=== PATIENT | male | born 1950 | race Caucasian/White ===

== ENCOUNTER 2021-06-29 16:55 | Inpatient (IN) | payer MEDICARE ==
[~2021-06-29] VITALS: Ht 188 cm; Wt 88.9 kg
[2021-06-29] MEDS ORDERED: MELATONIN 3 MG TABLET PO PRN (20:45)
[2021-06-29 20:58] VITALS: BP 139/73
[2021-06-29] MEDS ORDERED: SENNA 187 MG TABLET PO SCH (21:00)
[2021-06-29] MEDS: ATORVASTATIN CALCIUM 40 MG TABLET PO SCH (22:33)
[2021-06-29] MEDS: ETHYL ALCOHOL 62% ANTISEPTIC NASAL INHALANT 0.6 ML AMPUL NASAL SCH (22:33)
[2021-06-29] MEDS: RIVAROXABAN 15 MG TABLET PO SCH (22:33)
[2021-06-29] MEDS: DOCUSATE SODIUM 100 MG CAPSULE PO SCH (22:33)
[2021-06-30] VITALS: BP 115/54
[2021-06-30 07:02] LABS: BASOPHILS % (AUTO) 0.6 % (0.0-2.0); EOSINOPHILS % (AUTO) 1.2 % (1.0-6.0); HEMATOCRIT 26.2 % (41-53); HEMOGLOBIN 9.5 g/dL (13.5-17.5); LYMPHOCYTES # (AUTO) 1.3 K/uL (1.0-4.8); LYMPHOCYTES % (AUTO) 13.1 % (22.0-44.0); MEAN CORPUSCULAR HEMOGLOBIN 31.2 pg (26.0-34.0); MEAN CORPUSCULAR HGB CONC 36.4 G/dL (31.0-37.0); MEAN CORPUSCULAR VOLUME 86 fL (80-100); MONOCYTES # (AUTO) 1.1 K/uL (0.1-1.0); MONOCYTES % (AUTO) 11.1 % (2.0-9.0); NEUTROPHILS # (AUTO) 7.5 K/uL (1.8-7.7); PLATELET COUNT (AUTO) 214 K/uL (150-450); RED BLOOD CELL COUNT(AUTO) 3.06 MIL/uL (4.50-5.90); RED CELL DISTRIBUTION WIDTH 14.6 % (11.5-14.5)
[2021-06-30 07:20] LABS: ALANINE AMINOTRANSFERASE 27 U/L (12-78); ALBUMIN 2.6 g/dL (3.4-5.0); ALKALINE PHOSPHATASE 68 U/L (46-116); ANION GAP 3 mmol/L (8-16); ASPARTATE AMINOTRANSFERASE 23 U/L (15-37); BILIRUBIN,TOTAL 0.8 mg/dL (0.1-1.0); CALCIUM, TOTAL 9.3 mg/dL (8.8-10.5); CARBON DIOXIDE 31 mmol/L (22-29); CHLORIDE 104 mmol/L (98-107); CREATININE 1.14 mg/dL (0.60-1.30); GLOMERULAR FILTR. RATE CALC > 60 mL/min (>60); GLUCOSE,RANDOM 113 mg/dL (70-110); POTASSIUM 4.3 mmol/L (3.5-5.1); SODIUM SERUM 138 mmol/L (136-145); TOTAL PROTEIN, SERUM 6.3 g/dL (6.4-8.2); UREA NITROGEN, BLOOD 26 mg/dL (7-18)
[2021-06-30] MEDS: DOCUSATE SODIUM 100 MG CAPSULE PO SCH (07:55)
[2021-06-30] MEDS: RIVAROXABAN 15 MG TABLET PO SCH ×2 (07:56→16:28)
[2021-06-30] MEDS: ASPIRIN 81 MG CHEWABLE TABLET PO SCH (07:57)
[2021-06-30] MEDS: ZINC SULFATE 220 MG CAPSULE PO SCH (07:57)
[2021-06-30] MEDS: PANTOPRAZOLE SODIUM 40 MG DR TABLET PO SCH (07:58)
[2021-06-30] MEDS: MULTIVITAMINS WITH MINERALS, THERAPEUTIC TABLET PO SCH (07:59)
[2021-06-30] MEDS: ASCORBIC ACID 500 MG TABLET PO SCH (07:59)
[2021-06-30] MEDS: ETHYL ALCOHOL 62% ANTISEPTIC NASAL INHALANT 0.6 ML AMPUL NASAL SCH ×2 (08:00→20:43)
[2021-06-30 09:00] VITALS: BP 125/60
[2021-06-30] MEDS: ACETAMINOPHEN 325 MG TABLET PO PRN ×2 (09:58→18:22)
[2021-06-30 16:30] VITALS: BP 130/64
[2021-06-30] MEDS: -LIDODERM PATCH NOTE- MISC SCH (20:42)
[2021-06-30] MEDS: ATORVASTATIN CALCIUM 40 MG TABLET PO SCH (20:43)
[2021-06-30] MEDS: SENNA 187 MG TABLET PO SCH (20:43)
[2021-06-30] MEDS: DOCUSATE SODIUM 250 MG CAPSULE PO SCH (20:43)
[2021-07-01 00:43] VITALS: BP 121/61
[2021-07-01] MEDS: ZINC SULFATE 220 MG CAPSULE PO SCH (08:09)
[2021-07-01] MEDS: RIVAROXABAN 15 MG TABLET PO SCH ×2 (08:09→17:38)
[2021-07-01] MEDS: PANTOPRAZOLE SODIUM 40 MG DR TABLET PO SCH (08:09)
[2021-07-01] MEDS: ASCORBIC ACID 500 MG TABLET PO SCH (08:09)
[2021-07-01] MEDS: MULTIVITAMINS WITH MINERALS, THERAPEUTIC TABLET PO SCH (08:09)
[2021-07-01] MEDS: ASPIRIN 81 MG CHEWABLE TABLET PO SCH (08:09)
[2021-07-01] MEDS: DOCUSATE SODIUM 250 MG CAPSULE PO SCH ×2 (08:09→20:06)
[2021-07-01] MEDS: ETHYL ALCOHOL 62% ANTISEPTIC NASAL INHALANT 0.6 ML AMPUL NASAL SCH ×2 (08:10→20:07)
[2021-07-01] MEDS: LIDOCAINE 5% TRANSDERMAL PATCH TD SCH (08:16)
[2021-07-01 08:30] VITALS: BP 128/63
[2021-07-01] MEDS: ACETAMINOPHEN 325 MG TABLET PO PRN (16:35)
[2021-07-01 16:40] VITALS: BP 127/60
[2021-07-01] MEDS: ATORVASTATIN CALCIUM 40 MG TABLET PO SCH (20:06)
[2021-07-01] MEDS: SENNA 187 MG TABLET PO SCH (20:06)
[2021-07-01] MEDS: -LIDODERM PATCH NOTE- MISC SCH (20:07)
[2021-07-02 00:59] VITALS: BP 120/61
[2021-07-02] MEDS: ASPIRIN 81 MG CHEWABLE TABLET PO SCH (08:28)
[2021-07-02] MEDS: MULTIVITAMINS WITH MINERALS, THERAPEUTIC TABLET PO SCH (08:28)
[2021-07-02] MEDS: ASCORBIC ACID 500 MG TABLET PO SCH (08:28)
[2021-07-02] MEDS: PANTOPRAZOLE SODIUM 40 MG DR TABLET PO SCH (08:28)
[2021-07-02] MEDS: DOCUSATE SODIUM 250 MG CAPSULE PO SCH ×2 (08:28→20:01)
[2021-07-02] MEDS: ETHYL ALCOHOL 62% ANTISEPTIC NASAL INHALANT 0.6 ML AMPUL NASAL SCH ×2 (08:29→20:02)
[2021-07-02] MEDS: RIVAROXABAN 15 MG TABLET PO SCH ×2 (08:29→20:02)
[2021-07-02] MEDS: ZINC SULFATE 220 MG CAPSULE PO SCH (08:29)
[2021-07-02] MEDS: LIDOCAINE 5% TRANSDERMAL PATCH TD SCH (08:29)
[2021-07-02 13:49] VITALS: BP 137/65
[2021-07-02 16:00] VITALS: BP 122/68
[2021-07-02] MEDS: ATORVASTATIN CALCIUM 40 MG TABLET PO SCH (20:02)
[2021-07-02] MEDS: SENNA 187 MG TABLET PO SCH (20:02)
[2021-07-02] MEDS: -LIDODERM PATCH NOTE- MISC SCH (22:20)
[2021-07-03 00:24] VITALS: BP 112/60
[2021-07-03 08:00] VITALS: BP 122/66
[2021-07-03] MEDS: PANTOPRAZOLE SODIUM 40 MG DR TABLET PO SCH (09:07)
[2021-07-03] MEDS: DOCUSATE SODIUM 250 MG CAPSULE PO SCH ×2 (09:07→21:08)
[2021-07-03] MEDS: ZINC SULFATE 220 MG CAPSULE PO SCH (09:07)
[2021-07-03] MEDS: MULTIVITAMINS WITH MINERALS, THERAPEUTIC TABLET PO SCH (09:07)
[2021-07-03] MEDS: ASCORBIC ACID 500 MG TABLET PO SCH (09:07)
[2021-07-03] MEDS: ETHYL ALCOHOL 62% ANTISEPTIC NASAL INHALANT 0.6 ML AMPUL NASAL SCH ×2 (09:07→21:07)
[2021-07-03] MEDS: LIDOCAINE 5% TRANSDERMAL PATCH TD SCH (09:36)
[2021-07-03] MEDS: RIVAROXABAN 15 MG TABLET PO SCH ×2 (09:38→17:46)
[2021-07-03] MEDS: ASPIRIN 81 MG CHEWABLE TABLET PO SCH (09:38)
[2021-07-03] MEDS ORDERED: SODIUM CHLORIDE 0.65% 44 ML NASAL SPRAY NASAL PRN (13:00)
[2021-07-03 15:30] VITALS: BP 127/63
[2021-07-03] MEDS: -LIDODERM PATCH NOTE- MISC SCH (21:07)
[2021-07-03] MEDS: SENNA 187 MG TABLET PO SCH (21:08)
[2021-07-03] MEDS: ATORVASTATIN CALCIUM 40 MG TABLET PO SCH (21:08)
[2021-07-03 23:50] VITALS: BP 127/68
[2021-07-04 00:06] VITALS: BP 127/68
[2021-07-04] MEDS: DOCUSATE SODIUM 250 MG CAPSULE PO SCH ×2 (08:04→20:54)
[2021-07-04] MEDS: ASCORBIC ACID 500 MG TABLET PO SCH (08:05)
[2021-07-04] MEDS: ASPIRIN 81 MG CHEWABLE TABLET PO SCH (08:05)
[2021-07-04] MEDS: PANTOPRAZOLE SODIUM 40 MG DR TABLET PO SCH (08:05)
[2021-07-04] MEDS: MULTIVITAMINS WITH MINERALS, THERAPEUTIC TABLET PO SCH (08:05)
[2021-07-04] MEDS: ZINC SULFATE 220 MG CAPSULE PO SCH (08:05)
[2021-07-04] MEDS: RIVAROXABAN 15 MG TABLET PO SCH ×2 (08:05→16:57)
[2021-07-04] MEDS: LIDOCAINE 5% TRANSDERMAL PATCH TD SCH (08:06)
[2021-07-04] MEDS: ETHYL ALCOHOL 62% ANTISEPTIC NASAL INHALANT 0.6 ML AMPUL NASAL SCH ×2 (08:06→20:55)
[2021-07-04 09:33] VITALS: BP 121/64
[2021-07-04 16:20] VITALS: BP 100/55
[2021-07-04] MEDS: SENNA 187 MG TABLET PO SCH (20:54)
[2021-07-04] MEDS: ATORVASTATIN CALCIUM 40 MG TABLET PO SCH (20:55)
[2021-07-04] MEDS: -LIDODERM PATCH NOTE- MISC SCH (21:01)
[2021-07-05 00:52] VITALS: BP 130/58
[2021-07-05] MEDS: LIDOCAINE 5% TRANSDERMAL PATCH TD SCH (08:28)
[2021-07-05] MEDS: RIVAROXABAN 15 MG TABLET PO SCH ×2 (08:31→17:27)
[2021-07-05] MEDS: ZINC SULFATE 220 MG CAPSULE PO SCH (08:31)
[2021-07-05] MEDS: ASPIRIN 81 MG CHEWABLE TABLET PO SCH (08:31)
[2021-07-05] MEDS: DOCUSATE SODIUM 250 MG CAPSULE PO SCH ×2 (08:31→21:19)
[2021-07-05] MEDS: PANTOPRAZOLE SODIUM 40 MG DR TABLET PO SCH (08:31)
[2021-07-05] MEDS: ETHYL ALCOHOL 62% ANTISEPTIC NASAL INHALANT 0.6 ML AMPUL NASAL SCH ×2 (08:32→21:18)
[2021-07-05] MEDS: MULTIVITAMINS WITH MINERALS, THERAPEUTIC TABLET PO SCH (08:32)
[2021-07-05] MEDS: ASCORBIC ACID 500 MG TABLET PO SCH (08:32)
[2021-07-05 10:03] VITALS: BP 118/66
[2021-07-05 16:20] VITALS: BP 123/60
[2021-07-05] MEDS: SENNA 187 MG TABLET PO SCH (21:19)
[2021-07-05] MEDS: ATORVASTATIN CALCIUM 40 MG TABLET PO SCH (21:19)
[2021-07-05] MEDS: -LIDODERM PATCH NOTE- MISC SCH (21:56)
[2021-07-06 00:25] VITALS: BP 119/63
[2021-07-06] MEDS: LIDOCAINE 5% TRANSDERMAL PATCH TD SCH (08:40)
[2021-07-06] MEDS: DOCUSATE SODIUM 250 MG CAPSULE PO SCH ×2 (08:43→20:55)
[2021-07-06] MEDS: ASPIRIN 81 MG CHEWABLE TABLET PO SCH (08:44)
[2021-07-06] MEDS: MULTIVITAMINS WITH MINERALS, THERAPEUTIC TABLET PO SCH (08:44)
[2021-07-06] MEDS: PANTOPRAZOLE SODIUM 40 MG DR TABLET PO SCH (08:44)
[2021-07-06] MEDS: ASCORBIC ACID 500 MG TABLET PO SCH (08:44)
[2021-07-06] MEDS: ZINC SULFATE 220 MG CAPSULE PO SCH (08:44)
[2021-07-06] MEDS: ETHYL ALCOHOL 62% ANTISEPTIC NASAL INHALANT 0.6 ML AMPUL NASAL SCH ×2 (08:44→20:55)
[2021-07-06] MEDS: RIVAROXABAN 15 MG TABLET PO SCH ×2 (08:45→18:19)
[2021-07-06 09:00] VITALS: BP 111/63
[2021-07-06] MEDS ORDERED: ATOR40TA28 PO (11:08)
[2021-07-06] MEDS ORDERED: PANT-31 PO (11:08)
[2021-07-06] MEDS ORDERED: RIVA20TA PO (11:08)
[2021-07-06] MEDS ORDERED: ASPI-1450 PO (11:08)
[2021-07-06] MEDS ORDERED: ZINC220C14 PO (11:08)
[2021-07-06] MEDS ORDERED: RIVA15TA PO (11:08)
[2021-07-06] MEDS ORDERED: ASCO500 PO (11:08)
[2021-07-06] MEDS ORDERED: LIDO700A15 TP (11:08)
[2021-07-06] MEDS ORDERED: MULT-1239 PO (11:08)
[2021-07-06 15:30] VITALS: BP 126/58
[2021-07-06] MEDS: SENNA 187 MG TABLET PO SCH (20:55)
[2021-07-06] MEDS: -LIDODERM PATCH NOTE- MISC SCH (20:55)
[2021-07-06] MEDS: ATORVASTATIN CALCIUM 40 MG TABLET PO SCH (20:55)
[2021-07-07 01:39] VITALS: BP 124/62
[2021-07-07] MEDS: RIVAROXABAN 15 MG TABLET PO SCH (07:53)
[2021-07-07] MEDS: ZINC SULFATE 220 MG CAPSULE PO SCH (07:53)
[2021-07-07] MEDS: PANTOPRAZOLE SODIUM 40 MG DR TABLET PO SCH (07:54)
[2021-07-07] MEDS: ASPIRIN 81 MG CHEWABLE TABLET PO SCH (07:54)
[2021-07-07] MEDS: LIDOCAINE 5% TRANSDERMAL PATCH TD SCH (07:54)
[2021-07-07] MEDS: ASCORBIC ACID 500 MG TABLET PO SCH (07:54)
[2021-07-07] MEDS: DOCUSATE SODIUM 250 MG CAPSULE PO SCH (07:54)
[2021-07-07] MEDS: MULTIVITAMINS WITH MINERALS, THERAPEUTIC TABLET PO SCH (07:54)
[2021-07-07] MEDS: ETHYL ALCOHOL 62% ANTISEPTIC NASAL INHALANT 0.6 ML AMPUL NASAL SCH (08:05)
[2021-07-07 08:30] VITALS: BP 119/65
[2021-07-16] MEDS ORDERED: RIVAROXABAN 20 MG TABLET PO SCH (17:00)
== END 2021-07-07 12:10 | disposition home or self-care (01) | DRG 64 ==
LOC: 2WR 19:55
PROVIDERS: ADMIT Physical Medicine & Rehabilitation; ATTEND Physical Medicine & Rehabilitation
DX: I61.9 Nontraumatic intracerebral hemorrhage, unspecified (principal); I49.01 Ventricular fibrillation; G93.1 Anoxic brain damage, not elsewhere classified; E46 Unspecified protein-calorie malnutrition; R53.81 Other malaise; D64.9 Anemia, unspecified; M16.12 Unilateral primary osteoarthritis, left hip; N18.9 Chronic kidney disease, unspecified; I48.91 Unspecified atrial fibrillation; E78.5 Hyperlipidemia, unspecified; L89.159 Pressure ulcer of sacral region, unspecified stage; R26.9 Unspecified abnormalities of gait and mobility; K21.9 Gastro-esophageal reflux disease without esophagitis; I12.9 Hypertensive chronic kidney disease with stage 1 through stage 4 chronic kidney disease, or unspecified chronic kidney disease; Z86.16 Personal history of COVID-19; Z87.01 Personal history of pneumonia (recurrent); Z86.711 Personal history of pulmonary embolism; Z86.74 Personal history of sudden cardiac arrest; Z79.01 Long term (current) use of anticoagulants; Z68.25 Body mass index [BMI] 25.0-25.9, adult; Z88.0 Allergy status to penicillin; Z79.899 Other long term (current) drug therapy; Z79.82 Long term (current) use of aspirin
CPT/HCPCS: 73503; 80053; 85025; 87081; 92507; 92523; 97110; 97112; 97116; 97140; 97162; 97166; 97530; 97535; 99366